=== PATIENT | female | born 2000 | race Caucasian/White ===

== ENCOUNTER 2018-10-03 04:19 | Emergency (ER) | payer SELFPAY ==
[2018-10-03 04:27] VITALS: BMI 37.1
[2018-10-03 05:07] LABS: BASOPHILS 0.3 % (0-2); EOSINOPHILS 5.6 % (0-7); HEMATOCRIT 37.7 % (36.0-48.0); HEMOGLOBIN 12.6 g/dL (12-16); IMMATURE GRANULOCYTES 0.1 % (0-5); LYMPHOCYTES 32.2 % (15-50); MCH 29.3 pg (26.0-34.0); MCHC 33.4 g/dL (31.0-37.0); MCV 87.7 fL (80.0-100.0); MEAN PLATELET VOLUME 10.1 fL (7.4-10.4); MONOCYTES 7.4 % (2-11); NEUTROPHILS 54.4 % (40-80); PLATELET COUNT 260 10x3/uL (130-400); RDW 12.9 % (11.5-14.5); WBC 9.7 10x3/uL (4.8-10.8)
[2018-10-03 05:09] LABS: HCG SERUM NEGATIVE (NEGATIVE)
[2018-10-03 05:13] LABS: CALC OSMOLALITY 286 mosm/kg (275-300); CALCIUM 8.3 mg/dL (8.5-10.1); CARBON DIOXIDE 23.6 mmol/L (21.0-32.0); CHLORIDE - SERUM 106 mmol/L (98-107); CREATININE - SERUM 0.7 mg/dL (0.6-1.3); GLUCOSE 139 mg/dL (74-106); POTASSIUM - SERUM 3.6 mmol/L (3.5-5.1); SODIUM 141 mmol/L (136-145); UREA NITROGEN 23 mg/dL (7-18); eGFR NON AFRICAN AMERICAN > 90 mL/min (90-120)
[2018-10-03] MEDS ORDERED: ZOFRAN ODT4 MG/UDTAB PO (05:22)
[2018-10-03 05:35] VITALS: BP 132/85
== END 2018-10-03 05:35 | disposition home or self-care (01) ==
LOC: D.ER 04:19
PROVIDERS: Family Medicine
DX: R11.2 Nausea with vomiting, unspecified (principal)